=== PATIENT | male | born 1970 | race Caucasian/White ===

== ENCOUNTER 2019-03-13 09:12 | Inpatient (IN) ==
--- OUTSIDE RECORDS SUMMARY | 2019-03-13 09:16 | External Medical Summary | Continuity of Care Document ---
:1970 Author Name Rosemarie Garcia, Provider Address Unavailable Unavailable , Care Team Providers Name Role Phone Kailyn Garcia, Jimmie Wallace Unavailable [email or web address] Unavailable Unavailable Unavailable Unavailable Unavailable Assessments Assessed Problems:Excessive daytime sleepinessInsomniaOrganic periodic limb movement disorder Problems Excessive daytime sleepiness (780.54) (G47.19) Insomnia (780.52) (G47.00) Organic periodic limb movement disorder (781.0) (G47.61) Snoring (786.09) (R06.83) Acute cholecystitis (575.0) (K81.0) Allergies and Adverse Reactions No Known Drug Allergies (Allergy) Medications CeleXA 40 MG Oral Tablet Refills: 0 traZODone HCl - 50 MG Oral Tablet Refills: 0 Procedures History of Colonoscopy (Fiberoptic) Stat us: Completed History of Shoulder Surgery Status: Comp leted History of Gallbladder Surgery Status: C ompleted Immunizations Immunizations not documented Family History Father Family history of malignant neoplasm of urinary bladder (V16 .52) Status: Active (Z80.52) Social History - Smoking Status Former smoker Interventions Discussion/SummaryImpression: 45-year-old male with severe sleep deprivation . His sleep study did not show evidence of sleep apnea, but did show significant elevation in PLMs consistent with PLMD.. This may be causing his sleep disruption and fatigue. Plan: Stay trazodone for at least another 3 weeks. If no improvement in his sleep quality considerstarting ropinirole 0.25 milligrams 1 or 2 before bedtime. Either I can that or his PCP can prescribe it. See me as needed for follow-up. Plan of Treatment Planned Observations Planned Goals not documented Results No Known Results Results not documented Encounters Appointment; Jimmie Avina M.D. 23-Nov-2015 13:00 Encounter Diagnosis: Problem not documented
[2019-03-13] MEDS ORDERED: SODIUM CHLORIDE 0.9% 1000ML 1,000 ML IV SCH (09:45)
--- NOTE | 2019-03-13 10:07 | XRay Report ---
XR chest 1V portable CLINICAL HISTORY: weakness COMPARISON STUDY: 12/02/2014 FINDINGS: The cardiac and mediastinal contours are normal. There is no evidence of focal pulmonary co nsolidation. There is no evidence of failure. No pleural effusions are visualized.[ IMPRESSION: No active disease in the chest. Electronically signed by: See Pompa M.D. 03/13/2019 10:06 AM
[2019-03-13 10:08] LABS: Basophils # (auto) 0.03 K/uL (0-0.2); Basophils % (auto) 0.5 %; Eosinophils # (auto) 0.15 K/uL (0-0.5); Eosinophils % (auto) 2.3 %; Hematocrit (blood only) 44.7 % (42-52); Hemoglobin 15.4 g/dL (14.0-18.0); Immature Granulocytes # (auto) 0.01 K/uL (0.00-0.02); Immature Granulocytes % (auto) 0.2 %; Lymphocytes # (auto) 1.48 K/uL (1.2-3.4); Lymphocytes % (auto) 22.8 %; Mean Corpuscular Hemoglobin 31.8 pg (25-34); Mean Corpuscular Hgb Conc 34.5 g/dL (32-36); Mean Corpuscular Volume 92.4 fL (80-100); Mean Platelet Volume 12.2 fL (7.4-10.4); Monocytes # (auto) 0.68 K/uL (0.11-0.59); Monocytes % (auto) 10.5 %; Neutrophils # (auto) 4.15 K/uL (1.4-6.5); Neutrophils % (auto) 63.7 %; Platelet Count 159 K/uL (130-400); RDW Coefficient of Variation 12.9 % (11.5-14.5); RDW Standard Deviation 43.5 fL (36.4-46.3); Red Blood Count 4.84 M/uL (4.7-6.1)
[2019-03-13 10:13] LABS: Appearance Urine Clear (Clear); Bilirubin Urine Negative (Negative); Blood Urine Negative (Negative); Color Urine Yellow; Glucose Urine UA Negative (Negative); Ketones Urine Negative (Negative); Leukocyte Esterase Urine Negative (Negative); Nitrite Urine Negative (Negative); Protein Urine Negative (Negative); Specific Gravity Urine 1.009 (1.000-1.030); Urobilinogen Urine Negative (Negative)
[2019-03-13 10:19] LABS: INR 1.3 (0.9-1.1); Partial Thromboplastin Ratio 1.1; Partial Thromboplastin Time 29.1 Seconds (21.0-31.0); Prothrombin Time 12.9 Seconds (9.0-12.0)
[2019-03-13 10:20] LABS: iSTAT Creatinine 1.3 mg/dl (0.6-1.3); iSTAT Ionized Calcium 1.25 mmol/l (1.12-1.32); iSTAT Potassium 4.2 mEq/L (3.3-5.0)
[2019-03-13 10:37] LABS: Alanine Aminotransferase 27 U/L (12-78); Albumin Level 4.6 gm/dl (3.4-5.0); Aspartate Aminotransferase 23 U/L (15-37); BUN Creatinine Ratio 12.5 (10-20); Bilirubin,Total 0.4 mg/dl (0.2-1); Blood Urea Nitrogen 14 mg/dl (7-18); Calcium 9.9 mg/dl (8.5-10.1); Carbon Dioxide 29 mmol/L (21-32); Chloride 106 mmol/L (98-107); Creatinine Clr Calc Pharmacy 83.3 ml/min; Est GFR (African American) 87.3; Est GFR (Non-African American) 75.4; Glucose 77 mg/dl (70-99); Potassium 4.1 mmol/L (3.5-5.1); Sodium 140 mmol/L (136-145)
[2019-03-13 10:47] LABS: Albumin Globulin Ratio 1.2 (0.9-2); Alkaline Phosphatase 52 U/L (45-117); Globulin 3.7 gm/dl (2.5-4.0); Magnesium 2.2 mg/dl (1.8-2.4); Total Protein 8.3 gm/dl (6.4-8.2); Troponin I < 0.015 ng/ml (0-0.045)
--- NOTE | 2019-03-13 11:14 | CT Scan Report ---
CT head/brain wo con CLINICAL HISTORY: 48 years-old Male presenting with dizzy. TECHNIQUE: Multidetector CT imaging of the head was performed without the use of intravenous contrast . IV contrast: None. One or more dose lowering techniques were used consistent with the principles of ALARA (as low as reasonably achievable), including automatic exposure control, mA or kV adjustment t o individual patient size, and/or use of iterative reconstruction. COMPARISON: Brain MR from 2008. CT DOSE (mGy.cm): The estimated cumulative dose is 1625.36. FINDINGS: Imitation Marble Mechanic topogram: Unremarkable. Ventricles and sulci normal in size. No hemorrhage. Brain parenchyma normal in appearance with preser radha daniels-white differentiation. No acute territorial infarct. No mass effect or midline shift. No ext ra-axial fluid collection. Paranasal sinuses and mastoid air cells clear. Calvarium intact. IMPRESSION: 1. No acute intracranial abnormality. Electronically signed by: Kevin Contreras M.D. 03/13/2019 11:13 AM
[2019-03-13] MEDS ORDERED: OPTIRAY 320 125ml IV PRN (11:19)
--- NOTE | 2019-03-13 11:23 | CT Scan Report ---
CT angio chest PE protocol CLINICAL HISTORY: 48 years-old Male presenting with dizziness, recent diagnosis of pulmonary embolus. TECHNIQUE: Multidetector CT angiography of the chest was performed after administration of intravenou s contrast. 3-D volumetric and/or maximum intensity projection (MIP) images were subsequently reconst ructed for review. IV contrast: 118 mL of Optiray 320. One or more dose lowering techniques were used consistent with the principles of ALARA (as low as reasonably achievable), including automatic expos ure control, mA or kV adjustment to individual patient size, and/or use of iterative reconstruction. COMPARISON: CTA chest from 10/08/2011. CT DOSE (mGy.cm): The estimated cumulative dose is 1625.36. FINDINGS: Lean Process Deployment Consultant topogram: Unremarkable. Pulmonary vasculature: The study is adequate for assessment of the pulmonary vascular tree. Acute segmental and subsegmental pulmonary emboli in the right lower lobe. Similar segmental and subsegmental pulmonary emboli in the left lower lobe. Main pulmonary artery is not enlarged. No flattening of the interventricular septum . No intracardiac filling defect. Reflux of contrast into the intrahepatic IVC. Remaining chest: Soft tissues: Normal thyroid and thoracic inlet. No axillary, supraclavicular, mediastinal, or hilar lymphadenopathy. Normal aorta. Normal heart size. No pericardial or pleural effusion. Cholecystectomy clips. Lungs and airways: No pneumothorax. Central airways patent. Pulmonary arteries are not significantly enlarged relative to adjacent bronchi. No interlobular septal thickening. Minimal dependent changes l ikely atelectasis. Musculoskeletal: Degenerative changes of the spine. IMPRESSION: 1. Acute bilateral segmental and subsegmental lower lobe pulmonary emboli. No CT evidence of right h eart strain. 2. Minimal bibasilar atelectasis. No evidence of a focal peripheral consolidation to suggest infarct . The report will be called/faxed according to standard departmental protocol for a critical finding. Electronically signed by: Kevin Contreras M.D. 03/13/2019 11:21 AM
--- NOTE | 2019-03-13 11:26 | CT Scan Report ---
CT angio neck with con CLINICAL HISTORY: 48 years-old Male presenting with dizzy. TECHNIQUE: Multidetector CT angiography of the neck was performed after the administration of intrave nous contrast. 3-D volumetric and/or maximum intensity projection (MIP) images were subsequently alvin nstructed for review. IV contrast: 118 mL of Optiray 320. One or more dose lowering techniques were u sed consistent with the principles of ALARA (as low as reasonably achievable), including automatic ex posure control, mA or kV adjustment to individual patient size, and/or use of iterative reconstructio n. Stenosis measurements were based on NASCET-like criteria (distal lumen diameter as the denominator for stenosis measurement). COMPARISON: None. CT DOSE (mGy.cm): The estimated cumulative dose is 1625.36 mGy.cm. FINDINGS: Emery Grinder topogram: Unremarkable. Aortic arch: Normal three-vessel aortic arch with patent origins of the branch vessels. Innominate artery: Patent. Right subclavian artery: Patent. Right common carotid artery: Patent. Right internal and external carotid arteries: Right carotid bifurcation patent. Right internal and ex ternal carotid arteries widely patent. Left common carotid artery: Patent. Left internal and external carotid arteries: Left carotid bifurcation patent. Left internal and exter nal carotid arteries widely patent. Left subclavian artery: Patent. Vertebral arteries: Codominant vertebral arteries. Origins and courses of the bilateral vertebral art eries patent. Other: Limited intracranial evaluation within normal limits. Soft tissues of the neck normal allowing for the phase of contrast. Degenerative changes of the cervical spine. Lung apices clear. IMPRESSION: 1. No evidence of dissection, focal vessel occlusion, or significant stenosis of the cervical arteri es. Electronically signed by: Kevin Contreras M.D. 03/13/2019 11:24 AM
--- NOTE | 2019-03-13 11:30 | CT Scan Report ---
CT angio head w con CLINICAL HISTORY: Dizziness. Recent history of pulmonary embolism. TECHNIQUE: CT angiography of the head was performed in a dynamic helical fashion during intravenous a dministration of 118 cc of Optiray 320. MIP imaging was performed. A dose lowering technique was util ized adhering to the principles of ALARA. CT DOSE: COMPARISON STUDY: No previous studies for comparison. FINDINGS: There is minimal fluid/thickening within maxillary sinuses. There is no evidence for major intracranial branch occlusion. The dural venous sinuses appear patent. There is a 2.5 cm aneurysm arising from the undersurface of the right supraclinoid internal carotid artery. IMPRESSION: 1. 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 2. No major intracranial branch occlusion. No evidence of intracranial stenosis. Electronically signed by: See Pompa M.D. 03/13/2019 11:28 AM
[2019-03-13] MEDS ORDERED: Heparin IV Standard *NO* Bolus IV SCH (13:25)
[2019-03-13] MEDS: HEPARIN SODIUM/DEXTROSE 25,000 UNITS/500 ML BAG IV SCH (13:47)
--- NOTE | 2019-03-13 14:26 | History & Physical Report ---
Date of Service March 13, 2019 History of Present Illness Primary Care Provider: Ivan Butcher DO Allergies Allergy/AdvReac Type Severity Reaction Status Date / Time No Known Allergies Allergy Mild Unverified 03/13/19 10:46 Home Medications Home Medications Medication Instructions Recorded Confirmed Type apixaban [Eliquis] 10 mg PO BID 03/13/19 03/13/19 History Past Med/Surg History Medical History Acute cholecystitis Asthma Surgical History S/P cholecystectomy Social History Preferred Language: Syriac Communication Ability: Effective Facility Environmental Technician Required: No Beliefs That Will Affect Care: None Current Living Situation: Family Other Information That Helps Us Care for You: No Feels Safe at Home: Yes Safety Concerns: Feels Safe At This Time Smoking Status: Never smoker Hx Alcohol Use: No Hx Substance Use: No Results & Data Vital Signs (Past 12 Hours) Vital Signs Temp Pulse Resp BP Pulse Ox 03/13/19 13:17 53 L 12 107/69 98 03/13/19 12:30 53 L 19 148/85 H 99 03/13/19 12:00 57 L 17 140/83 99 03/13/19 11:54 99 03/13/19 11:43 46 L 14 131/77 98 03/13/19 09:24 36.8 C 54 L 18 137/81 99 Code Status & VTE Plan VTE Prophylaxis Plan VTE Prophylaxis will be ordered: No
[2019-03-13] MEDS ORDERED: ACETAMINOPHEN 325 MG TAB PO PRN (14:41)
--- NOTE | 2019-03-13 15:35 | Emergency Department Note ---
Entered by Cynthia Hobson acting as a scribe for Brennan Willis DO History of Present Illness General Chief complaint: Dizziness Stated complaint: DVT Time Seen by Provider: 03/13/19 09:30 Source: patient History of Present Illness Provider complaint: dizziness and palpation Onset (ago): hour(s) less than 1 Location: head Pain Consistency: + intermittent Maximum Pain Intensity: 6 Quality: + other (dizziness, flush) Relieved By: + none Associated symptoms: + denies other symptoms, + headaches and + other (palpations, flush, ); no chest pain, no nausea/vomiting and no shortness of breath The patient is a 48 y/o male who presents to the emergency department for evaluation of now resolved dizziness that began prior to arrival. The patient states that this morning he began feeling dizziness like he was having a head carter and palpations. He note he has a history of head carter with elevation changes in the past but this is different. The patient reports that he began having right leg pain 4 days ago and was diagnosed with a blood clot yesterday and started on Eliquis. He notes that he is still currently dizzy, has headache, and feeling overall unwell but is feeling slightly better than before. He denies SOB, chest pain, regular medication, abdominal pain, urinary symptoms, and any other symptoms. Home Medications Home Medications Medication Instructions Recorded Confirmed Type apixaban [Eliquis] 10 mg PO BID 03/13/19 03/13/19 History Allergies Allergy/AdvReac Type Severity Reaction Status Date / Time No Known Allergies Allergy Mild Unverified 03/13/19 10:46 Past Med/Surg History Medical History Acute cholecystitis Asthma Surgical History S/P cholecystectomy Social History Preferred Language: Grenadian Communication Ability: Effective Fish Technologist Required: No Beliefs That Will Affect Care: None Current Living Situation: Family Other Information That Helps Us Care for You: No Feels Safe at Home: Yes Safety Concerns: Feels Safe At This Time Smoking Status: Never smoker Hx Alcohol Use: No Hx Substance Use: No Review of Systems See HPI for pertinent positives & negatives. and A total of 10 systems reviewed and were otherwise negative Physical Exam Vital Signs Vital Signs - 24 hr 03/13/19 09:24 03/13/19 11:43 03/13/19 11:54 Temperature 36.8 C Temperature Source Oral Sepsis Recent Fever Within 48 Hours No Sepsis New/Unexplained Change in Mental Status No Sepsis Action Taken by Nursing No Action Required Pulse Rate 54 L 46 L Pulse Rate from SpO2 Sensor 46 L Respiratory Rate 18 14 Respiratory Effort / Characteristics Non-Labored Spontaneous Respiratory Depth Normal Respiratory Pattern Regular Blood Pressure 137/81 131/77 Blood Pressure Mean 99 95 Blood Pressure Position Sitting Pulse Oximetry 99 98 99 Oxygen Delivery Method Room Air Room Air 03/13/19 12:00 03/13/19 12:30 Temperature Temperature Source Sepsis Recent Fever Within 48 Hours Sepsis New/Unexplained Change in Mental Status Sepsis Action Taken by Nursing Pulse Rate 57 L 53 L Pulse Rate from SpO2 Sensor 49 L 50 L Respiratory Rate 17 19 Respiratory Effort / Characteristics Respiratory Depth Respiratory Pattern Blood Pressure 140/83 148/85 H Blood Pressure Mean 102 106 Blood Pressure Position Pulse Oximetry 99 99 Oxygen Delivery Method GENERAL: Patient is awake, alert, and in no acute distress.Patient is resting comfortably and showing no signs of anxiety EYES: The conjunctivae are clear. The pupils are round and reactive. EARS, NOSE, MOUTH AND THROAT: The nose is without any evidence of any deformity. Mucous membranes are moist.Tongue is midline NECK: The neck is nontender and supple. RESPIRATORY: Normal respiratory effort is noted. There is no evidence of wheezing rhonchi or rales to auscultation. CARDIOVASCULAR: Regular rate and rhythm noted. There no murmurs rubs or gallops normal S1 normal S2 GASTROINTESTINAL: The abdomen is soft. Bowel sounds are present in all quad rants. Abdomen is nontender. MUSCULOSKELETAL/EXTREMITIES: There is no evidence of gross deformity. Full range of motion is noted in the hips and shoulders. SKIN: There is no obvious evidence of any rash. There are no petechiae, pallor or cyanosis noted. NEUROLOGIC: Patient is awake alert and oriented x3. Strength is symmetric. Patellar reflexes are 2+ bilaterally. Course 0932: Past medical records reviewed. The patient was evaluated in room A09B. A complete history and physical exam was performed. 1145: I updated the patient on his results and discussed the treatment options with him. 1203: I spoke with Carlos Crenshaw for Dr.Coppes Blanche Crenshaw. She will evaluate for further management. Administered Medications Heparin Sodium/Dextrose (Heparin Sodium/Dextrose) 25,000 units in 500 mls @ 29 mls/hr IV .[id number] HERIBERTO; Protocol Stop: 04/12/19 13:29 Last Titration: 03/13/19 14:51 Dose: 1,450 units/hr, 29 mls/hr Documented by: [id number] Cosigned by: [id number] Admin: 03/13/19 13:47 Dose: 1,450 units/hr, 29 mls/hr Documented by: [id number] Cosigned by: [id number] Ioversol (Optiray 320 125ml) 118 ml IV ONCE PRN PRN Reason: Interaction Checking Stop: 03/17/19 11:18 Last Admin: 03/13/19 11:19 Dose: 118 ml Documented by: [id number] Discontinued Medications Sodium Chloride (Nss 1000ml) 1,000 mls @ 999 mls/hr IV .[id number] HERIBERTO Stop: 03/13/19 10:45 Last Infusion: 03/13/19 11:40 Dose: 0 mls/hr Documented by: [id number] Admin: 03/13/19 10:01 Dose: 999 mls/hr Documented by: [id number] Medical Decision Making Differential Diagnosis Differential diagnosis: Etiologies such as benign positional vertigo, labrynthitis, dehydration, hypovolemia, anemia, tumor, infection, hypoglycemia, electrolyte abnormalities, cardiac sources, toxicological sources, central neurologic process, as well as others were entertained. Medical Records Attestation: I reviewed the patient's medical records. Home Medications Current Medication List: was personally reviewed by me Laboratory Data Attestation: I reviewed the patient's lab results. Result diagrams: 03/13/19 09:57 03/13/19 09:57 Lab Results 03/13/19 03/13/19 03/13/19 Range/Units 09:55 09:57 09:57 WBC 6.50 (4.8-10.8) K/uL RBC 4.84 (4.7-6.1) M/uL Hgb 15.4 (14.0-18.0) g/dL POC Hgb (14.0-18.0) g/dl Hct 44.7 (42-52) % POC Hct (42-52) % MCV 92.4 (80-100) fL MCH 31.8 (25-34) pg MCHC 34.5 (32-36) g/dL RDW Std Deviation 43.5 (36.4-46.3) fL RDW Coeff of Joanna 12.9 (11.5-14.5) % Plt Count 159 (130-400) K/uL MPV 12.2 H (7.4-10.4) fL Immature Gran % (Auto) 0.2 % Neut % (Auto) 63.7 % Lymph % (Auto) 22.8 % Cook % (Auto) 10.5 % Eos % (Auto) 2.3 % Baso % (Auto) 0.5 % Immature Gran # (Auto) 0.01 (0.00-0.02) K/uL Neut # (Auto) 4.15 (1.4-6.5) K/uL Lymph # (Auto) 1.48 (1.2-3.4) K/uL Cook # (Auto) 0.68 H (0.11-0.59) K/uL Eos # (Auto) 0.15 (0-0.5) K/uL Baso # (Auto) 0.03 (0-0.2) K/uL PT 12.9 H (9.0-12.0) Seconds INR 1.3 H (0.9-1.1) APTT 29.1 (21.0-31.0) Seconds PTT Ratio 1.1 POC Sodium (135-144) mEq/L Sodium (136-145) mmol/L POC Potassium (3.3-5.0) mEq/L Potassium (3.5-5.1) mmol/L POC Chloride (101-112) mEq/L Chloride (98-107) mmol/L Carbon Dioxide (21-32) mmol/L POC Total CO2 (24-31) mEq/l Anion Gap (3-11) POC Anion Gap (16-25) mmol/L POC BUN (7-18) mg/dl BUN (7-18) mg/dl Creatinine (0.6-1.4) mg/dl POC Creatinine (0.6-1.3) mg/dl Est Cr Clr Drug Dosing ml/min Est GFR ( Amer) Est GFR (Non-Af Amer) BUN/Creatinine Ratio (10-20) Glucose (70-99) mg/dl POC Glucose (other) (70-99) mg/dl Calcium (8.5-10.1) mg/dl POC Ioniz Calcium Tc (1.12-1.32) mmol/l Magnesium (1.8-2.4) mg/dl Total Bilirubin (0.2-1) mg/dl AST (15-37) U/L ALT (12-78) U/L Alkaline Phosphatase (45-117) U/L Troponin I (0-0.045) ng/ml Total Protein (6.4-8.2) gm/dl Albumin (3.4-5.0) gm/dl Globulin (2.5-4.0) gm/dl Albumin/Globulin Ratio (0.9-2) TSH (0.300-4.500) uIu/ml Urine Color Yellow Urine Appearance Clear (Clear) Urine pH 6.0 (4.5-7.5) Ur Specific Marston 1.009 (1.000-1.030) Urine Protein Negative (Negative) Urine Glucose (UA) Negative (Negative) Urine Ketones Negative (Negative) Urine Blood Negative (Negative) Urine Nitrite Negative (Negative) Urine Bilirubin Negative (Negative) Urine Urobilinogen Negative (Negative) Ur Leukocyte Esterase Negative (Negative) 03/13/19 03/13/19 Range/Units 09:57 10:07 WBC (4.8-10.8) K/uL RBC (4.7-6.1) M/uL Hgb (14.0-18.0) g/dL POC Hgb 15.0 (14.0-18.0) g/dl Hct (42-52) % POC Hct 44 (42-52) % MCV (80-100) fL MCH (25-34) pg MCHC (32-36) g/dL RDW Std Deviation (36.4-46.3) fL RDW Coeff of Joanna (11.5-14.5) % Plt Count (130-400) K/uL MPV (7.4-10.4) fL Immature Gran % (Auto) % Neut % (Auto) % Lymph % (Auto) % Cook % (Auto) % Eos % (Auto) % Baso % (Auto) % Immature Gran # (Auto) (0.00-0.02) K/uL Neut # (Auto) (1.4-6.5) K/uL Lymph # (Auto) (1.2-3.4) K/uL Cook # (Auto) (0.11-0.59) K/uL Eos # (Auto) (0-0.5) K/uL Baso # (Auto) (0-0.2) K/uL PT (9.0-12.0) Seconds INR (0.9-1.1) APTT (21.0-31.0) Seconds PTT Ratio POC Sodium 141 (135-144) mEq/L Sodium 140 (136-145) mmol/L POC Potassium 4.2 (3.3-5.0) mEq/L Potassium 4.1 (3.5-5.1) mmol/L POC Chloride 103 (101-112) mEq/L Chloride 106 (98-107) mmol/L Carbon Dioxide 29 (21-32) mmol/L POC Total CO2 29 (24-31) mEq/l Anion Gap 5.0 (3-11) POC Anion Gap 15.0 L (16-25) mmol/L POC BUN 14 (7-18) mg/dl BUN 14 (7-18) mg/dl Creatinine 1.15 (0.6-1.4) mg/dl POC Creatinine 1.3 (0.6-1.3) mg/dl Est Cr Clr Drug Dosing 83.3 ml/min Est GFR ( Amer) 87.3 Est GFR (Non-Af Amer) 75.4 BUN/Creatinine Ratio 12.5 (10-20) Glucose 77 (70-99) mg/dl POC Glucose (other) 75 (70-99) mg/dl Calcium 9.9 (8.5-10.1) mg/dl POC Ioniz Calcium Tc 1.25 (1.12-1.32) mmol/l Magnesium 2.2 (1.8-2.4) mg/dl Total Bilirubin 0.4 (0.2-1) mg/dl AST 23 (15-37) U/L ALT 27 (12-78) U/L Alkaline Phosphatase 52 (45-117) U/L Troponin I < 0.015 (0-0.045) ng/ml Total Protein 8.3 H (6.4-8.2) gm/dl Albumin 4.6 (3.4-5.0) gm/dl Globulin 3.7 (2.5-4.0) gm/dl Albumin/Globulin Ratio 1.2 (0.9-2) TSH 2.090 (0.300-4.500) uIu/ml Urine Color Urine Appearance (Clear) Urine pH (4.5-7.5) Ur Specific Marston (1.000-1.030) Urine Protein (Negative) Urine Glucose (UA) (Negative) Urine Ketones (Negative) Urine Blood (Negative) Urine Nitrite (Negative) Urine Bilirubin (Negative) Urine Urobilinogen (Negative) Ur Leukocyte Esterase (Negative) Imaging Data Radiologist's Impression: Radiology results as stated below per my review and the radiologist's interpretation: CT angio chest PE protocol CLINICAL HISTORY: 48 years-old Male presenting with dizziness, recent diagnosis of pulmonary embolus. TECHNIQUE: Multidetector CT angiography of the chest was performed after administration of intravenous contrast. 3-D volumetric and/or maximum intensity projection (MIP) images were subsequently reconstructed for review. IV contrast: 118 mL of Optiray 320. One or more dose lowering techniques were used consistent with the principles of ALARA (as low as reasonably achievable), including automatic exposure control, mA or kV adjustment to individual patient size, and/or use of iterative reconstruction. COMPARISON: CTA chest from 10/08/2011. CT DOSE (mGy.cm): The estimated cumulative dose is 1625.36. FINDINGS: Sales Planning Coordinator topogram: Unremarkable. Pulmonary vasculature: The study is adequate for assessment of the pulmonary vascular tree. Acute segmental and subsegmental pulmonary emboli in the right lower lobe. Similar segmental and subsegmental pulmonary emboli in the left lower lobe. Main p ulmonary artery is not enlarged. No flattening of the interventricular septum. No intracardiac filling defect. Reflux of contrast into the intrahepatic IVC. Remaining chest: Soft tissues: Normal thyroid and thoracic inlet. No axillary, supraclavicular, mediastinal, or hilar lymphadenopathy. Normal aorta. Normal heart size. No pericardial or pleural effusion. Cholecystectomy clips. Lungs and airways: No pneumothorax. Central airways patent. Pulmonary arteries are not significantly enlarged relative to adjacent bronchi. No interlobular septal thickening. Minimal dependent changes likely atelectasis. Musculoskeletal: Degenerative changes of the spine. IMPRESSION: 1. Acute bilateral segmental and subsegmental lower lobe pulmonary emboli. No CT evidence of right heart strain. 2. Minimal bibasilar atelectasis. No evidence of a focal peripheral consolidation to suggest infarct. The report will be called/faxed according to standard departmental protocol for a critical finding. Electronically signed by: Kevin Contreras M.D. 03/13/2019 11:[address] head/brain wo con CLINICAL HISTORY: 48 years-old Male presenting with dizzy. TECHNIQUE: Multidetector CT imaging of the head was performed without the use of intravenous contrast. IV contrast: None. One or more dose lowering techniques were used consistent with the principles of ALARA (as low as reasonably achievable), including automatic exposure control, mA or kV adjustment to individual patient size, and/or use of iterative reconstruction. COMPARISON: Brain MR from 2008. CT DOSE (mGy.cm): The estimated cumulative dose is 1625.36. FINDINGS: Sales Planning Coordinator topogram: Unremarkable. Ventricles and sulci normal in size. No hemorrhage. Brain parenchyma normal in appearance with preserved daniels-white differentiation. No acute territorial infarct. No mass effect or midline shift. No extra-axial fluid collection. Paranasal sinuses and mastoid air cells clear. Calvarium intact. IMPRESSION: 1. No acute intracranial abnormality. Electronically signed by: Kevin Contreras M.D. 03/13/2019 11:13 AM XR chest 1V portable CLINICAL HISTORY: weakness COMPARISON STUDY: 12/02/2014 FINDINGS: The cardiac and mediastinal contours are normal. There is no evidence of focal pulmonary consolidation. There is no evidence of failure. No pleural effusions are visualized.[ IMPRESSION: No active disease in the chest. Electronically signed by: See Pompa M.D. 03/13/2019 10:[address] angio head w con CLINICAL HISTORY: Dizziness. Recent history of pulmonary embolism. TECHNIQUE: CT angiography of the head was performed in a dynamic helical fashion during intravenous administration of 118 cc of Optiray 320. MIP imaging was performed. A dose lowering technique was utilized adhering to the principles of ALARA. CT DOSE: COMPARISON STUDY: No previous studies for comparison. FINDINGS: There is minimal fluid/thickening within maxillary sinuses. There is no evidence for major intracranial branch occlusion. The dural venous sinuses appear patent. There is a 2.5 cm aneurysm arising from the undersurface of the right supraclinoid internal carotid artery. IMPRESSION: 1. 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 2. No major intracranial branch occlusion. No evidence of intracranial stenosis. Electronically signed by: See Pompa M.D. 03/13/2019 11:[address] angio neck with con CLINICAL HISTORY: 48 years-old Male presenting with dizzy. TECHNIQUE: Multidetector CT angiography of the neck was performed after the administration of intravenous contrast. 3-D volumetric and/or maximum intensity projection (MIP) images were subsequently reconstructed for review. IV contrast: 118 mL of Optiray 320. One or more dose lowering techniques were used consistent with the principles of ALARA (as low as reasonably achievable), including automatic exposure control, mA or kV adjustment to individual patient size, and/or use of iterative reconstruction. Stenosis measurements were based on NASCET-like criteria (distal lumen diameter as the denominator for stenosis measurement). COMPARISON: None. CT DOSE (mGy.cm): The estimated cumulative dose is 1625.36 mGy.cm. FINDINGS: Sales Planning Coordinator topogram: Unremarkable. Aortic arch: Normal three-vessel aortic arch with patent origins of the branch vessels. Innominate artery: Patent. Right subclavian artery: Patent. Right common carotid artery: Patent. Right internal and external carotid arteries: Right carotid bifurcation patent. Right internal and external carotid arteries widely patent. Left common carotid artery: Patent. Left internal and external carotid arteries: Left carotid bifurcation patent. Left internal and external carotid arteries widely patent. Left subclavian artery: Patent. Vertebral arteries: Codominant vertebral arteries. Origins and courses of the bilateral vertebral arteries patent. Other: Limited intracranial evaluation within normal limits. Soft tissues of the neck normal allowing for the phase of contrast. Degenerative changes of the cervical spine. Lung apices clear. IMPRESSION: 1. No evidence of dissection, focal vessel occlusion, or significant stenosis of the cervical arteries. Electronically signed by: Kevin Contreras M.D. 03/13/2019 11:24 AM ECG Data Attestation: I personally reviewed and interpreted this ECG as follows: Indication: other (dizzy) Rate (beats per minute): 43 Rhythm: sinus bradycardia Findings: + other (No ST segments noted ); no ectopy Comparison ECG Date: from (7/1/15) Change: no significant change Blood Pressure Blood Pressure Findings: Elevated blood pressure Blood Pressure Disposition: further management by hospitalist [facility] Narrative The patient is a 48-year-old male who presented to the emergency department for evaluation of dizziness and near syncope. The patient describes an episode of dizziness where he felt very "foggy". He felt that there was something wrong in his head. He did not have any focal neurologic deficits. His speech was clear. The patient recently started Eliquis for a DVT that was diagnosed yesterday by his primary care physician on ultrasound. Patient has had 2 doses of Eliquis. He did describe one episode of chest pain which is since resolved. Given the patient's recent diagnosis of DVT I was concerned he may have had a pulmonary embolism. He was more concerned about a central nervous system lesion. The patient had CT the head as well as CT angiography of the head neck as well as CT angiography the chest. The patient was reevaluated multiple times. He was not tachycardic or hypoxic. His blood pressure was stable. I discussed the patient's laboratory and radiographic studies with him. Because of the findings on chest CT I also discussed his case with the on-call [facility] hospitalist group. The patient was felt to be a candidate for further antico agulation but I will defer further choice of anticoagulation to the admitting team. Impression & Plan Pulmonary embolism, Near syncope, Dizziness, DVT (deep venous thrombosis) Discharge Plan Visit Data *Final* Discharge Date/Time: 03/13/19 13:53 Chief Complaint: Dizziness Stated Complaint: DVT ED Provider: Brennan Willis Discharge Problem: Pulmonary embolism, Near syncope, Dizziness, DVT (deep venous thrombosis) Patient Disposition: Admitted As Inpatient Discharge Instructions Interventions: ED Discharge Assessment Last Done: 03/13/19 13:53 Discharge Problem: Pulmonary embolism Qualifiers: Pulmonary embolism type: unspecified Chronicity: acute Acute cor pulmonale presence: unspecified Qualified Code(s): I26.99 - Other pulmonary embolism without acute cor pulmonale DVT (deep venous thrombosis) Qualifiers: DVT location: lower extremity Affected thrombotic vein of extremity: other lower extremity vein Chronicity: acute Laterality: right Qualified Code(s): I82.491 - Acute embolism and thrombosis of other specified deep vein of right lower extremity The scribe's documentation has been prepared under my direction and personally reviewed by me in its entirety. I confirm that the note above accurately reflects all work, treatment, procedures, and medical decision making performed by me.
--- NOTE | 2019-03-13 16:51 | Ultrasound Report ---
BILATERAL LOWER EXTREMITY VENOUS DOPPLER HISTORY: pulmonary emboli COMPARISON STUDY: None. FINDINGS: There is occlusive DVT within the right popliteal vein and nonocclusive DVT within the prox imal right posterior tibial veins. Noncompressibility of the right peroneal veins suggesting an addit ional thrombus. No DVT within the left lower extremity. IMPRESSION: 1. Right lower extremity DVT as described above. 2. No DVT within the left lower extremity. Electronically signed by: Charli Ramos M.D. 03/13/2019 4:49 PM
--- NOTE | 2019-03-13 17:21 | History & Physical Report ---
Date of Service March 13, 2019 Assessment & Plan (1) Pulmonary embolism: Diagnosed with DVT of the right popliteal and right calf veins yesterday. No associated signs or symptoms of pulmonary embolism at that time. Ran twice over the weekend without any cardiopulmonary limitations. DVT appears to be unprovoked- no immobilization, surgery, recent travel, personal history of malignancy. No known family history of VTE (although brother recently unexpectedly and cause of uncertain). Started on apixaban and has taken 2 doses thus far. This morning experienced an episode of near syncope associated with palpitations, but no chest pain or dyspnea. CTA of chest demonstrated bilateral segmental and subsegmental pulmonary emboli. No RV strain per echo. It could be debated whether or not patient failed apixaban therapy since he took only 2 doses before presenting to the ED. Case discussed with Hematology. Seems prudent to assume that patient failed apixaban therapy and other anticoagulants should be utilized. Options for acute anticoagulation discussed. Opted for IV heparin without bolus since patient received a dose of apixaban this morning. As discussed below, 2.5 mm right carotid aneurysm felt to be incidental finding and felt to be low risk for anticoagulation. It is surprising that the pulmonary emboli apparently occurred without findings of proximal DVT in the lower extremities yesterday or today. It is possible that proximal thrombi embolized before first venous duplex performed, but patient had no signs or symptoms of pulmonary embolism at that time and had two 4 mile-runs a few days prior without limitations. Must consider possibility of pelvic/IVC thrombosis. Check CT venogram, but wait until tomorrow because of dye load from CTAs today. As discussed above, VTE appears to be unprovoked. No prior history of VTE. No known family history of VTE, although brother recently unexpectedly and cause of is uncertain. No recent travel, immobilization, recent surgery. Patient does have a personal history of colonic polyps and has had several col onoscopies. Patient states that he was told that polyps were "precancerous." Probable adenomatous polyps. Last colonoscopy in December 2018 showed only a 2 mm polyp in the ascending colon. Unable to review surgical pathology from last colonoscopy at time of admission due to software update- benign pathology should be confirmed when possible. Extensive imaging to look for possible underlying malignancy is generally not recommended; that being said, CTA of chest did not show any apparent pathology and CT venogram of abdomen and pelvis has been ordered to rule out IVC or pelvic vein thrombosis. Evaluation for underlying hypercoagulable disorders is not recommended in the setting of an acute VTE, but should be done as an outpatient. As discussed above, apparent failure of apixaban therapy. Initial anticoagulation with IV heparin without bolus because of apixaban dosing this morning. Should be able to transition to SQ enoxaparin over next 24 hours. Probably best not to use apixaban or other factor Xa inhibitors. Warfarin may be best option for oral anticoagulation. Will need at least 5 days of parenteral heparin/enoxaparin with at least 2 days of warfarin therapy with therapeutic INR. Outpatient consultation with Hematology recommended for advice regarding hematologic evaluation and duration of therapy. (2) DVT (deep venous thrombosis): Present on admission. Evaluation and management as noted above. (3) Bradycardia: EKG demonstrated sinus bradycardia in the 40s. Patient is athletic and bradycardia is not unusual for him. (4) Aneurysm, carotid artery, internal: CT of head and CT angiograms of cervical and intracranial vessels performed because of episode of near syncope. No acute findings, but incidentally noted to have a 2.5 mm aneurysm arising from the undersurface of the right supraclinoid internal carotid artery. Images were transferred to [facility] and findings were discussed with Neurosurgery. The aneurysm is very small and was an incidental finding. Risk of intracranial hemorrhage from anticoagulation very low given small size of aneurysm and benefits of anticoagulation in the setting of acute VTE outweigh the risk. Nonemergent outpatient consultation with Neurosurgery at [facility] recommended for further recommendations regarding long-term follow-up. Patient advised to obtain emergent evaluation if he develops a severe headache. (5) DVT prophylaxis: Receiving IV heparin for acute VTE. (6) Discharge planning issues: Anticipated discharge to home. Family Medicine follow-up with Dr. Ivan Butcher. History of Present Illness Chief Complaint: lightheadedness Primary Care Provider: Ivan Butcher, DO 48-year-old male followed by Dr. Ivan Butcher for Family Medicine. He enjoys excellent health. 2-3 days prior to admission he developed some right calf pain. 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 The right calf pain persisted and he was evaluated in clinic yesterday. No chest pain or shortness of breath. Venous duplex of the right lower extremity demonstrated DVT involving the right popliteal vein and right calf veins. There were no proximal thromboses in either the right or left lower extremity. Started on apixaban-took 10 mg last night and 10 mg this morning. This morning he experienced an episode of lightheadedness associated with palpitations that lasted for perhaps a minute or 2. No loss of consciousness. No associated chest pain or dyspnea. Came to the ED for evaluation where CTA of chest demonstrated bilateral segmental and subsegmental pulmonary emboli. No prior history of VTE. No immobilization. No recent surgery. No personal history of malignancy. No family history of VTE. Allergies Allergy/AdvReac Type Severity Reaction Status Date / Time No Known Allergies Allergy Mild Unverified 03/13/19 10:46 Home Medications Home Medications Medication Instructions Recorded Confirmed Type apixaban [Eliquis] 10 mg PO BID 03/13/19 03/13/19 History Past Med/Surg History Medical History Asthma (Chronic) Colonic polyp (Chronic) s/p multiple colonoscopies 12/30/18- 2 mm polyp ascending colon Acute cholecystitis (Resolved) Surgical History S/P cholecystectomy (Chronic) Family History Father Carcinoma of bladder Social History Preferred Language: Belgian Communication Ability: Effective Surgical Instrument Maker Required: No Beliefs That Will Affect Care: None Current Living Situation: Family Other Information That Helps Us Care for You: No Feels Safe at Home: Yes Safety Concerns: Feels Safe At This Time Smoking Status: Former smoker Do You Dip or Chew Tobacco: No ; Second Hand Exposure: No ; Tobacco Cessation Education Requested by Patient: No Hx Alcohol Use: Yes (no recent use) Hx Substance Use: No Review of Systems Constitutional: no fever and no weight loss Eyes: no diplopia and no worsening vision Ear, Nose, Mouth, Throat: no sore throat (few weeks ago, resolved) Respiratory: + cough (few wks ago, associated with pharyngitis, resolved); no dyspnea, no hemoptysis and no pain on inspiration Cardiovascular: + palpitations; no chest pain and no edema Gastrointestinal: no nausea, no vomiting, no constipation, no diarrhea/loose stools, no blood in stools and no melena Genitourinary: no dysuria, no difficulty urinating and no hematuria Musculoskeletal: + myalgia (right calf pain) Neurologic: no headache(s) Endocrine: no polydipsia and no polyuria Hematologic / Lymphatic: no easy bleeding, no easy bruising and no lymphadenopathy Physical Exam Constitutional: WD/WN, vitals as above no acute distress Eyes: PERRL, conjunctivae normal, anicteric sclerae ENMT: external ear and nose normal, oropharynx normal Neck: trachea midline, no thyromegaly Respiratory: normal respiratory effort, lungs clear to auscultation no respiratory distress Auscultation: lungs clear to auscultation bilaterally Cardiovascular: Rate/Rhythm: regular rate and regular rhythm Heart Sounds: no gallop, no murmur and no cardiac rub Vessels: no JVD Extremities: + calf tenderness (mild right calf tenderness); no edema Gastrointestinal (Abdomen): normal bowel sounds, soft, nontender, no hepatosplenomegaly Musculoskeletal: Head/Neck/Chest: neck supple Extremities: strength 5/5 throughout; no cyanosis and no clubbing Skin: no rashes, warm and dry Neurologic: PERRL, EOMI no facial palsy no dysarthria or aphasia Psychiatric: Orientation: alert and oriented x 3 Affect: euthymic affect Lymphatic: no cervical lymphadenopathy Results & Data Vital Signs (Past 12 Hours) Vital Signs Temp Pulse Pulse Resp BP BP Pulse Ox 03/13/19 15:44 67 03/13/19 15:35 36.6 C 48 L 18 131/81 97 03/13/19 15:22 36.9 C 51 L 20 119/78 97 03/13/19 15:00 03/13/19 14:45 36.9 C 48 L 16 131/81 97 03/13/19 13:17 53 L 12 107/69 98 03/13/19 12:30 53 L 19 148/85 H 99 03/13/19 12:00 57 L 17 140/83 99 03/13/19 11:54 99 03/13/19 11:43 46 L 14 131/77 98 03/13/19 09:24 36.8 C 54 L 18 137/81 99 Pulse Ox 03/13/19 15:44 03/13/19 15:35 03/13/19 15:22 03/13/19 15:00 96 10/10/19 14:45 03/13/19 13:17 03/13/19 12:30 03/13/19 12:00 03/13/19 11:54 03/13/19 11:43 03/13/19 09:24 Laboratory Results Laboratory Results - last 24 hr 03/13/19 03/13/19 03/13/19 09:55 09:57 09:57 WBC 6.50 RBC 4.84 Hgb 15.4 POC Hgb Hct 44.7 POC Hct MCV 92.4 MCH 31.8 MCHC 34.5 RDW Std Deviation 43.5 RDW Coeff of Joanna 12.9 Plt Count 159 MPV 12.2 H Immature Gran % (Auto) 0.2 Neut % (Auto) 63.7 Lymph % (Auto) 22.8 [place] % (Auto) 10.5 Eos % (Auto) 2.3 Baso % (Auto) 0.5 Immature Gran # (Auto) 0.01 Neut # (Auto) 4.15 Lymph # (Auto) 1.48 [place] # (Auto) 0.68 H Eos # (Auto) 0.15 Baso # (Auto) 0.03 PT 12.9 H INR 1.3 H APTT 29.1 PTT Ratio 1.1 POC Sodium Sodium POC Potassium Potassium POC Chloride Chloride Carbon Dioxide POC Total CO2 Anion Gap POC Anion Gap POC BUN BUN Creatinine POC Creatinine Est Cr Clr Drug Dosing Est GFR ( Amer) Est GFR (Non-Af Amer) BUN/Creatinine Ratio Glucose POC Glucose (other) Calcium POC Ioniz Calcium Tc Magnesium Total Bilirubin AST ALT Alkaline Phosphatase Troponin I Total Protein Albumin Globulin Albumin/Globulin Ratio TSH Urine Color Yellow Urine Appearance Clear Urine pH 6.0 Ur Specific [place] 1.009 Urine Protein Negative Urine Glucose (UA) Negative Urine Ketones Negative Urine Blood Negative Urine Nitrite Negative Urine Bilirubin Negative Urine Urobilinogen Negative Ur Leukocyte Esterase Negative 03/13/19 03/13/19 03/13/19 09:57 10:07 19:43 WBC RBC Hgb POC Hgb 15.0 Hct POC Hct 44 MCV MCH MCHC RDW Std Deviation RDW Coeff of Joanna Plt Count MPV Immature Gran % (Auto) Neut % (Auto) Lymph % (Auto) [place] % (Auto) Eos % (Auto) Baso % (Auto) Immature Gran # (Auto) Neut # (Auto) Lymph # (Auto) [place] # (Auto) Eos # (Auto) Baso # (Auto) PT INR APTT 47.8 H* PTT Ratio 1.8 POC Sodium 141 Sodium 140 POC Potassium 4.2 Potassium 4.1 POC Chloride 103 Chloride 106 Carbon Dioxide 29 POC Total CO2 29 Anion Gap 5.0 POC Anion Gap 15.0 L POC BUN 14 BUN 14 Creatinine 1.15 POC Creatinine 1.3 Est Cr Clr Drug Dosing 83.3 Est GFR ( Amer) 87.3 Est GFR (Non-Af Amer) 75.4 BUN/Creatinine Ratio 12.5 Glucose 77 POC Glucose (other) 75 Calcium 9.9 POC Ioniz Calcium Tc 1.25 Magnesium 2.2 Total Bilirubin 0.4 AST 23 ALT 27 Alkaline Phosphatase 52 Troponin I < 0.015 Total Protein 8.3 H Albumin 4.6 Globulin 3.7 Albumin/Globulin Ratio 1.2 TSH 2.090 Urine Color Urine Appearance Urine pH Ur Specific [place] Urine Protein Urine Glucose (UA) Urine Ketones Urine Blood Urine Nitrite Urine Bilirubin Urine Urobilinogen Ur Leukocyte Esterase Diagnostic Findings PORTABLE CHEST X-RAY FINDINGS: The cardiac and mediastinal contours are normal. There is no evidence of focal pulmonary consolidation. There is no evidence of failure. No pleural effusions are visualized.[ IMPRESSION: No active disease in the chest. Electronically signed by: See Pompa M.D. 03/13/2019 10:06 AM CTA CHEST FINDINGS: Cream Dumper topogram: Unremarkable. Pulmonary vasculature: The study is adequate for assessment of the pulmonary vascular tree. Acute segmental and subsegmental pulmonary emboli in the right lower lobe. Similar segmental and subsegmental pulmonary emboli in the left lower lobe. Main pulmonary artery is not enlarged. No flattening of the interventricular septum. No intracardiac filling defect. Reflux of contrast into the intrahepatic IVC. Remaining chest: Soft tissues: Normal thyroid and thoracic inlet. No axillary, supraclavicular, mediastinal, or hilar lymphadenopathy. Normal aorta. Normal heart size. No pericardial or pleural effusion. Cholecystectomy clips. Lungs and airways: No pneumothorax. Central airways patent. Pulmonary arteries are not significantly enlarged relative to adjacent bronchi. No interlobular septal thickening. Minimal dependent changes likely atelectasis. Musculoskeletal: Degenerative changes of the spine. IMPRESSION: 1. Acute bilateral segmental and subsegmental lower lobe pulmonary emboli. No CT evidence of right heart strain. 2. Minimal bibasilar atelectasis. No evidence of a focal peripheral consolidation to suggest infarct. The report will be called/faxed according to standard departmental protocol for a critical finding. Electronically signed by: Kevin Contreras M.D. 03/13/2019 11:[address] HEAD FINDINGS: Cream Dumper topogram: Unremarkable. Ventricles and sulci normal in size. No hemorrhage. Brain parenchyma normal in appearance with preserved daniels-white differentiation. No acute territorial infarct. No mass effect or midline shift. No extra-axial fluid collection. Paranasal sinuses and mastoid air cells clear. Calvarium intact. IMPRESSION: 1. No acute intracranial abnormality. Electronically signed by: Kevin Contreras M.D. 03/13/2019 11:13 AM CTA HEAD FINDINGS: There is minimal fluid/thickening within maxillary sinuses. There is no evidence for major intracranial branch occlusion. T he dural venous sinuses appear patent. There is a 2.5 cm aneurysm arising from the undersurface of the right supraclinoid internal carotid artery. IMPRESSION: 1. 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 2. No major intracranial branch occlusion. No evidence of intracranial stenosis. Electronically signed by: See Pompa M.D. 03/13/2019 11:28 AM CTA NECK IMPRESSION: 1. No evidence of dissection, focal vessel occlusion, or significant stenosis of the cervical arteries. Electronically signed by: Kevin Contreras M.D. 03/13/2019 11:24 AM VENOUS DUPLEX LOWER EXTREMITIES FINDINGS: There is occlusive DVT within the right popliteal vein and nonocclusive DVT within the proximal right posterior tibial veins. Noncompressibility of the right peroneal veins suggesting an additional thrombus. No DVT within the left lower extremity. IMPRESSION: 1. Right lower extremity DVT as described above. 2. No DVT within the left lower extremity. Electronically signed by: Charli Ramos M.D. 03/13/2019 4:49 PM ECHOCARDIOGRAM Normal LV chamber size with mild concentric LVH. Normal LV systolic function, EF 60-65%. No segmental left ventricular wall motion abnormalities are noted. Normal diastolic function. The right ventricular cavity size is normal. Right ventricular systolic function is normal. No significant valvular pathology. ECG Additional Comments: EKG performed at 0939 reviewed and demonstrated sinus bradycardia at 43/minute, early repolarization inferior and lateral leads, no significant change compared to 12/02/2014. Code Status & VTE Plan VTE Prophylaxis Plan VTE Prophylaxis will be ordered: No Reason for no VTE drug order: Treatment not indicated (receiving IV heparin for acute VTE) Reason for no VTE mechanical prophylaxis: Treatment not indicated (receiving IV heparin for acute VTE) (1) Pulmonary embolism Acute cor pulmonale presence: unspecified Chronicity: acute Pulmonary embolism type: unspecified Qualified Code(s): I26.99 - Other pulmonary embolism without acute cor pulmonale (2) DVT (deep venous thrombosis) Affected thrombotic vein of extremity: other lower extremity vein Chronicity: acute DVT location: lower extremity Laterality: right Qualified Code(s): I82.491 - Acute embolism and thrombosis of other specified deep vein of right lower extremity
[2019-03-13 20:49] LABS: Partial Thromboplastin Ratio 1.8
[2019-03-13 20:56] LABS: Partial Thromboplastin Time 47.8 Seconds (21.0-31.0)
[2019-03-14] MEDS: HEPARIN SODIUM/DEXTROSE 25,000 UNITS/500 ML BAG IV SCH (06:28)
[2019-03-14 06:59] LABS: Hematocrit (blood only) 41.1 % (42-52); Hemoglobin 14.5 g/dL (14.0-18.0); Mean Corpuscular Hemoglobin 32.1 pg (25-34); Mean Corpuscular Hgb Conc 35.3 g/dL (32-36); Mean Corpuscular Volume 90.9 fL (80-100); Mean Platelet Volume 11.4 fL (7.4-10.4); Platelet Count 152 K/uL (130-400); RDW Coefficient of Variation 12.9 % (11.5-14.5); RDW Standard Deviation 42.8 fL (36.4-46.3); Red Blood Count 4.52 M/uL (4.7-6.1)
[2019-03-14 07:20] LABS: INR 1.2 (0.9-1.1); Partial Thromboplastin Ratio 2.5; Prothrombin Time 12.6 Seconds (9.0-12.0)
[2019-03-14 07:24] LABS: BUN Creatinine Ratio 12.6 (10-20); Calcium 9.1 mg/dl (8.5-10.1); Creatinine Clr Calc Pharmacy 93.4 ml/min; Est GFR (African American) 102.2; Est GFR (Non-African American) 88.2
[2019-03-14 07:25] LABS: Partial Thromboplastin Time 68.9 Seconds (21.0-31.0)
[2019-03-14] MEDS ORDERED: LOVENOX TEACHING KIT PRN (10:29)
[2019-03-14] MEDS ORDERED: ENOXAPARIN 100 MG/1ML SYR SQ SCH (11:00)
[2019-03-14] MEDS ORDERED: IOVERSOL 100ml IV PRN (12:14)
--- NOTE | 2019-03-14 12:44 | CT Scan Report ---
CT abdom pelvis veno wo/w con CLINICAL HISTORY: 48 years-old Male presenting with pulmonary emboli. TECHNIQUE: Multidetector CT of the abdomen and pelvis was performed before and after the administrati on of intravenous contrast. IV contrast: 94 mL of Optiray 320. One or more dose lowering techniques w ere used consistent with the principles of ALARA (as low as reasonably achievable), including automat ic exposure control, mA or kV adjustment to individual patient size, and/or use of iterative reconstr uction. COMPARISON: 05/04/2014. CT DOSE (mGy.cm): The estimated cumulative dose is 879.72 mGy.cm. FINDINGS: Car Whacker topogram: Vasectomy clips noted. Lung bases: Normal heart size. No pericardial or pleural effusion. Minimal dependent changes likely a telectasis. Liver: Normal morphology. Well-defined hypodensities in the liver likely hepatic cysts or hamartomas. Patent hepatic vasculature. Biliary: No intrahepatic or extrahepatic biliary ductal dilatation. Gallbladder surgically absent. Pancreas: Normal. Spleen: Normal. Adrenal glands: Normal. Kidneys and ureters: Normal. No hydronephrosis. Bladder: Incompletely evaluated secondary to underdistention. Pelvic organs: Prostate and seminal vesicles normal. Bowel: Normal appendix. No bowel obstruction. Peritoneal cavity: No free fluid or intraperitoneal gas. Lymph nodes: No enlarged lymph nodes in the abdomen or pelvis. Vasculature: Aorta and IVC patent and normal in caliber. Abdominal wall: Normal. Musculoskeletal: Degenerative changes of the spine. IMPRESSION: 1. No acute intra-abdominal pathology. Electronically signed by: Kevin Contreras M.D. 03/14/2019 12:42 PM
[2019-03-14] MEDS ORDERED: STANDARD WARFARIN NOMOGRAM SCH (14:00)
[2019-03-14 14:08] LABS: Partial Thromboplastin Ratio 1.2; Partial Thromboplastin Time 32.3 Seconds (21.0-31.0)
--- NOTE | 2019-03-14 15:26 | Hospitalist Progress Note ---
Date of Service March 14, 2019 Assessment & Plan (1) Pulmonary embolism: Acute pulmonary embolism--unprovoked Recently diagnosed to have right lower extremity DVT--popliteal No family history of bleeding/clotting problems No risk factors for clots--immobilization, recent surgery, recent travel, history of malignancy --Chest CTA:Acute bilateral segmental and subsegmental lower lobe pulmonary emboli. No CT evidence of right heart strain. Minimal bibasilar atelectasis. No evidence of a focal peripheral consolidation to suggest infarct. The report will be called/faxed according to standard departmental protocol for a critical finding. --Venous Doppler: Right lower extremity DVT as described above. No DVT within the left lower extremity. --Abdominal CT venogram:No acute intra-abdominal pathology Will consider as apixaban failure Saturating well on room air No RV strain on ECHO Transition to Lovenox, Coumadin Needs follow-up with Coumadin clinic, hematology/oncology upon discharge Monitor INR (2) DVT (deep venous thrombosis): Management as above (3) Bradycardia: Sinus bradycardia No pauses on telemetry Bradycardia likely physiological secondary to being athletic. (4) Aneurysm, carotid artery, internal: Head CTA: 2.5 mm aneurysm arising from the undersurface of the right supraclinoid internal carotid. No major intracranial branch occlusion. No evidence of intracranial stenosis. Neck CTA:No evidence of dissection, focal vessel occlusion, or significant stenosis of the cervical arteries. Incidental finding on imaging Dizziness resolved Advised to follow-up with neurosurgery as outpatient (5) DVT prophylaxis: On Lovenox, Coumadin (6) Discharge planning issues: Plan to discharge home today Subjective Patient is seen and examined at bedside Calf pain much improved Denies any chest pain, shortness of breath, dizziness, nausea, abdominal pain On heparin drip No bleeding issues Prefers to be transitioned to Lovenox and Coumadin Dizziness resolved Sinus bradycardia on monitor, no issues otherwise Offers no other complaints Review of Systems Review of Systems: All systems reviewed & are unremarkable except as noted in HPI & below Physical Exam Physical Exam: Physical Exam: Vitals signs as noted above General Appearance:Moderately built and nourished, no apparent distress Head: normocephalic, Atraumatic Eyes: normal inspection, EOMI, PERRL Neck: supple, Trachea midline Respiratory/Chest: Normal breath sounds, CTA, No accessory muscle use Cardiovascular: S1, S2, No murmur,+Bradycardia Abdomen/GI:Soft, Non tender, Bowel sounds present Extremities/Musculoskelatal:normal inspection, no edema Neurologic/Psych:AAOX3, grossly no focal neurological deficits Skin: normal color, warm Results & Data Vital Signs (Past 12 Hours) Vital Signs Temp Pulse Resp BP Pulse Ox 03/14/19 11:35 37.0 C 67 16 111/73 95 03/14/19 07:14 36.5 C 56 L 16 119/70 95 03/14/19 05:05 36.6 C 43 L 18 96/59 L 94 Laboratory Results Short CBC 03/14/19 Range/Units 06:44 WBC 6.60 (4.8-10.8) K/uL Hgb 14.5 (14.0-18.0) g/dL Hct 41.1 L (42-52) % Plt Count 152 (130-400) K/uL BMP 03/14/19 06:44 Sodium 141 Potassium 4.0 Chloride 108 H Carbon Dioxide 28 BUN 13 Creatinine 1.01 Glucose 95 Calcium 9.1 (1) DVT (deep venous thrombosis) Affected thrombotic vein of extremity: other lower extremity vein Chronicity: acute DVT location: lower extremity Laterality: right Qualified Code(s): I82.491 - Acute embolism and thrombosis of other specified deep vein of right lower extremity (2) Pulmonary embolism Acute cor pulmonale presence: unspecified Chronicity: acute Pulmonary embolism type: unspecified Qualified Code(s): I26.99 - Other pulmonary embolism without acute cor pulmonale
--- NOTE | 2019-03-14 15:42 | Discharge Summary ---
Date of Service March 14, 2019 Admission HPI Per Admitting Provider 48-year-old male followed by Dr. Ivan Butcher for Family Medicine. He enjoys excellent health. 2-3 days prior to admission he developed some right calf pain. 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 The right calf pain persisted and he was evaluated in clinic yesterday. No chest pain or shortness of breath. Venous duplex of the right lower extremity demonstrated DVT involving the right popliteal vein and right calf veins. There were no proximal thromboses in either the right or left lower extremity. Started on apixaban-took 10 mg last night and 10 mg this morning. This morning he experienced an episode of lightheadedness associated with palpitations that lasted for perhaps a minute or 2. No loss of consciousness. No associated chest pain or dyspnea. Came to the ED for evaluation where CTA of chest demonstrated bilateral segmental and subsegmental pulmonary emboli. No prior history of VTE. No immobilization. No recent surgery. No personal history of malignancy. No family history of VTE. Admission Exam Per Admitting Provider Constitutional: WD/WN, vitals as above no acute distress Eyes: PERRL, conjunctivae normal, anicteric sclerae ENMT: external ear and nose normal, oropharynx normal Neck: trachea midline, no thyromegaly Respiratory: normal respiratory effort, lungs clear to auscultation no respiratory distress Auscultation: lungs clear to auscultation bilaterally Cardiovascular: Rate/Rhythm: regular rate and regular rhythm Heart Sounds: no gallop, no murmur and no cardiac rub Vessels: no JVD Extremities: + calf tenderness (mild right calf tenderness); no edema Gastrointestinal (Abdomen): normal bowel sounds, soft, nontender, no hepatosplenomegaly Musculoskeletal: Head/Neck/Chest: neck supple Extremities: strength 5/5 throughout; no cyanosis and no clubbing Skin: no rashes, warm and dry Neurologic: PERRL, EOMI no facial palsy no dysarthria or aphasia Psychiatric: Orientation: alert and oriented x 3 Affect: euthymic affect Lymphatic: no cervical lymphadenopathy Principal Diagnosis Acute pulmonary embolism Sinus bradycardia Right Internal carotid artery aneurysm Presyncope Discharge Data Allergies Allergy/AdvReac Type Severity Reaction Status Date / Time No Known Allergies Allergy Mild Unverified 03/13/19 10:46 Consultations 03/13/19 12:02 ED Decision to Admit Stat 03/13/19 14:36 Burn CD for patient Stat Procedures Performed --Chest CTA:Acute bilateral segmental and subsegmental lower lobe pulmonary emboli. No CT evidence of right heart strain. Minimal bibasilar atelectasis. No evidence of a focal peripheral consolidation to suggest infarct. The report will be called/faxed according to standard departmental protocol for a critical finding. --Venous Doppler: Right lower extremity DVT as described above. No DVT within the left lower extremity. --Abdominal CT venogram:No acute intra-abdominal pathology --Head CTA: 2.5 mm aneurysm arising from the undersurface of the right supraclinoid internal carotid. No major intracranial branch occlusion. No garett dence of intracranial stenosis. --Neck CTA:No evidence of dissection, focal vessel occlusion, or significant stenosis of the cervical arteries. --Head CT No acute intracranial abnormality. Ordered Studies 03/13/19 09:36 CT angio chest PE protocol Stat CT angio head w con Stat CT head/brain wo con Stat 03/13/19 10:46 CT angio neck with con Stat 03/13/19 14:41 US venous doppler LE BI Stat 03/14/19 10:30 CT abdom pelvis veno wo/w con Routine Hospital Course (1) Pulmonary embolism: Acute pulmonary embolism--unprovoked Recently diagnosed to have right lower extremity DVT--popliteal No family history of bleeding/clotting problems No risk factors for clots--immobilization, recent surgery, recent travel, history of malignancy --Chest CTA:Acute bilateral segmental and subsegmental lower lobe pulmonary emboli. No CT evidence of right heart strain. Minimal bibasilar atelectasis. No evidence of a focal peripheral consolidation to suggest infarct. The report will be called/faxed according to standard departmental protocol for a critical finding. --Venous Doppler: Right lower extremity DVT as described above. No DVT within the left lower extremity. --Abdominal CT venogram:No acute intra-abdominal pathology Will consider as apixaban failure Saturating well on room air No RV strain on ECHO Transition to Lovenox, Coumadin Needs follow-up with Coumadin clinic, hematology/oncology upon discharge Monitor INR (2) DVT (deep venous thrombosis): Management as above (3) Bradycardia: Sinus bradycardia No pauses on telemetry Bradycardia likely physiological secondary to being athletic. (4) Aneurysm, carotid artery, internal: Head CTA: 2.5 mm aneurysm arising from the undersurface of the right supraclinoid internal carotid. No major intracranial branch occlusion. No evidence of intracranial stenosis. Neck CTA:No evidence of dissection, focal vessel occlusion, or significant stenosis of the cervical arteries. Incidental finding on imaging Dizziness resolved Advised to follow-up with neurosurgery as outpatient (5) DVT prophylaxis: On Lovenox, Coumadin (6) Discharge planning issues: Plan to discharge home today Total Time Total Time Spent Total Time Spent (In Minutes): 39 minutes Total Time Includes: Examination of the Patient, Discharge Planning, Medication Reconciliation, Communication With Other Providers and Other Discharge Plan Discharge Items Patient Disposition: Home - Self-Care Reason For Visit: PULMONARY EMBOLI Discharge Diagnosis: Acute pulmonary embolism Sinus bradycardia Right Internal carotid artery aneurysm Pre Syncope Activity: Resume your previous activity Exercise/Sports: Gradually increase as tolerated Non-emergency contact: Primary Care Provider Call non-emergency contact if: you have any medication questions, your symptoms worsen, your pain is not controlled, your pain is worsening, your pain is unusual for you, your pain is concerning for you and you have a fever Follow-up/Referrals: Ivan Butcher, DO [Primary Care Provider] - Diet: Heart Healthy Ambulatory Orders: Prothrombin Time INR (Routine) Timeframe: 1 Day Location: Determined by Patient Ordered By: Rowdy Camacho Attending Provider Instructions: Follow-up with your primary care physician Dr.Shane Butcher on March 18, 2019 at 2 PM Follow-up with Coumadin clinic on March 152018 for management of Coumadin dosing as advised Follow-up with hematology/oncology as recommended for Recommendations on duration of anticoagulation and to evaluate cause for pulmonary emboli/deep vein thrombosis Follow-up with neurosurgery as recommended for evaluation and management of right internal carotid artery aneurysm as advised Get PT/INR checked on 03/15/19 and follow up with coumadin clinic Your target PT/INR is between 2-3 Continue Lovenox twice daily--duration to be determined by Coumadin clinic. Stop taking Eliquis, as you are transition to Coumadin. Seek immediate medical attention if your symptoms reoccur or worsen Pending Studies at Discharge: No Stand-Alone Forms: Abigail Stewart Medications and DC Order Prescriptions: New enoxaparin 100 mg/mL Syringe 90 mg subcut Q12H 5 Days Qty: 9 RF: 0 warfarin [Coumadin] 1 mg tablet 1 mg PO UD Qty: 120 RF: 0 warfarin [Coumadin] 2.5 mg tablet 2.5 mg PO UD Qty: 120 RF: 0 warfarin [Coumadin] 5 mg tablet 5 mg PO UD Qty: 100 RF: 0 Discontinued Eliquis 5 mg tablet 10 mg PO BID RF: 0 Discharge Orders: Discharge Order (Routine); Ordered 03/14/19 Ordered By: Rowdy Gonzalez/Other Patient Handouts: DVT Complications, Embolism Pulmonary, DVT Tx Admission Data Admit Date/Time: 03/13/19 13:05 Attending Provider: Rowdy Reaves Admit Provider: Jimmie Tan Primary Care Provider: Ivan Butcher Other Providers: Jimmie Tan Other Interventions: Discharge Summary Assessment (RN) Last Done: 03/14/19 15:57 DC Date/Time DO NOT enter until pt leaves facility: 03/14/19 16:25
[2019-03-14] MEDS ORDERED: WARFARIN SOD 7.5 MG TAB PO SCH (16:00)
== END 2019-03-14 16:25 | disposition home or self-care (01) | DRG 176 ==
LOC: ED 09:12 → 2S 13:05 → SUATTDRO 13:05 → 2S 13:53